=== PATIENT | male | born 1965 | race Caucasian/White ===

== ENCOUNTER 2018-08-06 18:25 | Emergency (ER) | payer BC ==
[~2018-08-06] VITALS: Ht 177.8 cm; Wt 80.7 kg
[~2018-08-06 18:25] MED LIST: AMLODIPINE PO; ATEN25TA PO; ATORVASTATIN PO; LISI-603 PO
--- NOTE | 2018-08-06 18:30 | NUR ---
PT TO ER BED 09 C/O GENERALIZED WEAKNESS X 2 MONTHS NOW. PT STATES WAS AT PMD OFFICE AND WAS ADVISED TO GO TO ED FOR LAB WORKS. PLACED ON MONITOR. [employer] REPA[employer]ER. AWAITING MD MEJIA.
--- NOTE | 2018-08-06 18:38 | NUR ---
DR AQUINO AT BEDSIDE FOR EVAL.
--- NOTE | 2018-08-06 18:40 | NUR ---
IV LINE STARTED BLOOD DRAWN AND SENT TO LAB.
[2018-08-06 18:49] LABS: BASOPHILS # (AUTO) 0.2 /CMM (0.0-0.2); BASOPHILS % (AUTO) 2.4 % (0.0-2.0); EOSINOPHILS % (AUTO) 9.3 % (0.0-6.0); HEMATOCRIT 24 % (39-51); HEMOGLOBIN 7.5 g/dL (13.5-17.5); LYMPHOCYTES # (AUTO) 2.7 /CMM (0.8-4.8); MEAN CORPUSCULAR HGB CONC 32 g/dl (31.0-36.0); MEAN CORPUSCULAR VOLUME 74 fL (80-96); MONOCYTES # (AUTO) 0.7 /CMM (0.1-1.30); MONOCYTES % (AUTO) 7.8 % (2.0-12.0); NEUTROPHILS # (AUTO) 4.5 /CMM (1.8-8.9); NEUTROPHILS % (AUTO) 50.5 % (43.0-81.0); PLATELET COUNT (AUTO) 402 /CMM (150-450); RED BLOOD CELL COUNT(AUTO) 3.18 MIL/uL (4.5-6.0)
[2018-08-06] MEDS ORDERED: PANTOPRAZOLE 40 MG VIAL ONE (18:53)
[2018-08-06 18:55] LABS: CALCIUM, SERUM 8.5 mg/dL (8.5-10.1); CREATININE 1.1 mg/dL (0.6-1.3); POTASSIUM 3.9 mmol/L (3.5-5.1)
[2018-08-06] MEDS ORDERED: IV NS 0.9% 1,000 ML BAG IV ONE (19:00)
[2018-08-06] MEDS ORDERED: PANTOPRAZOLE 40 MG VIAL IV ONE (19:00)
[2018-08-06 19:01] LABS: ALBUMIN 3.4 g/dL (3.4-5.0); BILIRUBIN,TOTAL 0.1 mg/dL (0.2-1.0); TOTAL PROTEIN, SERUM 7.3 g/dL (6.4-8.2)
[2018-08-06] MEDS ORDERED: AMLO5TAB9 PO (19:04)
[2018-08-06] MEDS ORDERED: LORA10TA7 PO (19:04)
--- NOTE | 2018-08-06 19:06 | NUR ---
REPORT GIVEN TO MAINOR LYNCH FOR HARRY.
--- NOTE | 2018-08-06 19:16 | NUR ---
REPORT GIVEN TO YESI LYNCH FOR HARRY.
--- NOTE | 2018-08-06 19:25 | NUR ---
received endorsement report from [facility] Sloan. Found pt awake, resting in bed. No s/s of acute distress or sob noted. at bedside. Pt is pending admission, waiting for room assignment. Will continue to monitor pt's condition and safety.
--- NOTE | 2018-08-06 20:10 | NUR ---
PHLEB. AT THE BED SIDE FOR SECOND TYPE AND CROSS
--- NOTE | 2018-08-06 20:20 | NUR ---
WAITING TO HERE BACK FROM Pt's INSURANCE
--- NOTE | 2018-08-06 21:30 | NUR ---
WAITING TO GET IN CONTACT WITH THE Pt's INSURANCE PCP
[2018-08-06 21:41] LABS: EOSINOPHILS % (MANUAL) 10 % (0-4); LYMPHOCYTES % (MANUAL) 24 % (16-48); MONOCYTES % (MANUAL) 8 % (0-11.0); NEUTROPHILS % (MANUAL) 58 (42-76)
--- NOTE | 2018-08-06 21:48 | NUR ---
SPOKE TO ACCOUNTING DIRECTOR, HUEY. HE INFORMED ME THAT THEY ARE WAITING FOR ADMITTING DR. ALCALA TO CALL THEM BACK. PT WILL BE GOING TO [facility].
--- NOTE | 2018-08-06 21:54 | NUR ---
BLOOD READY. SYED GALLARDO RETRIEVING BLOOD AT THIS TIME
--- NOTE | 2018-08-06 21:56 | NUR ---
BRAIN FROM [facility] CALLED TO INFORM ME THAT HE WILL BE SETTING UP TRANSPORTATION AND WILL GIVE ME AN ETA
--- NOTE | 2018-08-06 22:34 | NUR ---
Pt STARTED ON 1UN PRBC TRANSFUSION. BASELINE VS: T 98.6F HR 78 R 16 BP 153/95
--- NOTE | 2018-08-06 22:40 | NUR ---
PATIENT WILL BE TRANSFERED TO [facility] ROOM 3201 NUMBER TO GIVE REPORT ETA [address] [facility] [phone]
--- NOTE | 2018-08-06 22:55 | NUR ---
Pt IS TOLERATING BLOOD TRANSFUSION WELL. NO S/S OF ADVERSE REACTION NOTED. Pt DENIES HAVING ANY CHILLS, PAIN, OR SOB. CURRENT VS: T 98.4F, HR 78, R 17, BP 155/90, 0/10 PAIN. WILL CONTINUE TO MONITOR Pt.
--- NOTE | 2018-08-06 23:32 | NUR ---
REPORT GIVEN TO YOLIE BANUELOS. PT'S BLOOD TRANSFUSION IS STILL IN PROGRESS. ETA 30 MINS.
[2018-08-06 23:47] VITALS: BP 149/95
--- NOTE | 2018-08-06 23:47 | NUR ---
REPORT GIVEN TO PRAMOD CARREON. WAITING FOR BLOOD TRANSFUSION TO BE COMPLETED. Pt IS TOLERATING BLOOD TRANSFUSION WELL. Pt IS COMFORTABLE. NO S/S OF ADVERSE REACTION NOTED.
--- NOTE | 2018-08-07 00:12 | NUR ---
Patient being transported with EMT to [facility] in stable condition. No s/s of acute distress or sob noted. All needs met and attended to. Pt left facility safely in ambulance [facility].
== END 2018-08-07 00:15 | disposition short-term general hospital (02) ==
LOC: ER 18:25
DX: K92.2 Gastrointestinal hemorrhage, unspecified (principal); D50.9 Iron deficiency anemia, unspecified; I10 Essential (primary) hypertension; E78.00 Pure hypercholesterolemia, unspecified; F10.10 Alcohol abuse, uncomplicated; Y90.9 Presence of alcohol in blood, level not specified; Z90.89 Acquired absence of other organs; Z88.8 Allergy status to other drugs, medicaments and biological substances
CPT/HCPCS: 36415; 80048; 80076; 83690; 85025; 85730; 86850; 86921; 87081; 96374; 99291; C9113; J7030; J7050; P9016

== ENCOUNTER 2018-08-07 14:31 | Emergency (ER) | payer BC ==
[~2018-08-07] VITALS: Ht 180.3 cm; Wt 95.3 kg
[~2018-08-07 14:31] MED LIST changes: +AMLO5TAB9 PO; -AMLODIPINE PO; -ATORVASTATIN PO; -LISI-603 PO; +LORA10TA7 PO
--- NOTE | 2018-08-07 14:45 | NUR ---
C/O GENERALIZED WEAKNESS, LEFT [place] AMA. REQUESTING BLOOD TRANSFUSION. PATIENT KEPT COMFORTABLE, NO DISTRESS NOTED, PLACED ON THE MONITOR. WAITING FOR MD MEJIA.
[2018-08-07] MEDS ORDERED: IV NS 0.9% 500 ML BAG IV ONE (15:00)
[2018-08-07 15:11] LABS: BASOPHILS # (AUTO) 0.2 /CMM (0.0-0.2); BASOPHILS % (AUTO) 2.8 % (0.0-2.0); EOSINOPHILS % (AUTO) 6.5 % (0.0-6.0); HEMATOCRIT 27 % (39-51); HEMOGLOBIN 8.4 g/dL (13.5-17.5); LYMPHOCYTES # (AUTO) 1.8 /CMM (0.8-4.8); LYMPHOCYTES % (AUTO) 24.2 % (20.0-44.0); MEAN CORPUSCULAR HGB CONC 32 g/dl (31.0-36.0); MEAN CORPUSCULAR VOLUME 75 fL (80-96); MONOCYTES # (AUTO) 0.6 /CMM (0.1-1.30); MONOCYTES % (AUTO) 7.3 % (2.0-12.0); NEUTROPHILS # (AUTO) 4.5 /CMM (1.8-8.9); NEUTROPHILS % (AUTO) 59.2 % (43.0-81.0); PLATELET COUNT (AUTO) 416 /CMM (150-450); RED BLOOD CELL COUNT(AUTO) 3.54 MIL/uL (4.5-6.0); WHITE BLOOD COUNT (AUTO) 7.6 K/uL (4.3-11.0)
[2018-08-07 15:21] LABS: CALCIUM, SERUM 8.7 mg/dL (8.5-10.1); CREATININE 0.9 mg/dL (0.6-1.3); POTASSIUM 4.3 mmol/L (3.5-5.1)
[2018-08-07 15:26] LABS: ALBUMIN 3.5 g/dL (3.4-5.0); BILIRUBIN,DIRECT 0.1 mg/dL (0.0-0.2); BILIRUBIN,TOTAL 0.3 mg/dL (0.2-1.0); TOTAL PROTEIN, SERUM 7.6 g/dL (6.4-8.2)
[2018-08-07 16:18] LABS: LYMPHOCYTES % (MANUAL) 27 % (16-48); MONOCYTES % (MANUAL) 6 % (0-11.0); NEUTROPHILS % (MANUAL) 67 (42-76)
--- NOTE | 2018-08-07 16:34 | NUR ---
BLOOD TRANSFUSION CONSENT SIGNED BY PATIENT.
--- NOTE | 2018-08-07 18:20 | NUR ---
BLOOD TRANSFUSION STARTED VERIFIED BY KEENAN LYNCH. PATIENT'S VITALS STABLE AT THIS TIME. WILL CONTINUE TO MONITOR.
--- NOTE | 2018-08-07 18:39 | NUR ---
BLOOD TRANSFUSION NO REACTION WITHIN 15 MINUTES, RATE INCREASED TO 200ML/HR.
--- NOTE | 2018-08-07 19:27 | NUR ---
PATIENT IN STABLE CONDITION, BLOOD TRANSFUSION STILL ONGOING. ENDORSED TO SAMI FOR HARRY.
--- NOTE | 2018-08-07 20:25 | NUR ---
Patient discharged to home in stable condition. Written and verbal after care instructions given. MD spoke to the pt and the family . education given with understanding. Patient verbalizes understanding of instruction.
[2018-08-07 21:05] VITALS: BP 148/77
== END 2018-08-07 20:25 | disposition home or self-care (01) ==
LOC: ER 14:37
DX: D64.9 Anemia, unspecified (principal); K92.2 Gastrointestinal hemorrhage, unspecified; R06.09 Other forms of dyspnea; I10 Essential (primary) hypertension; E78.00 Pure hypercholesterolemia, unspecified; F10.10 Alcohol abuse, uncomplicated; Y90.9 Presence of alcohol in blood, level not specified; Z90.89 Acquired absence of other organs; Z88.8 Allergy status to other drugs, medicaments and biological substances
CPT/HCPCS: 36415; 80048; 80076; 83690; 85025; 85730; 86850; 86921; 99291; J7040; J7050; P9016